=== PATIENT | male | born 1985 | race Caucasian/White ===

== ENCOUNTER 2017-12-11 10:28 | Emergency (ER) | payer SELFPAY ==
--- NOTE | 2017-12-11 22:48 | EDM.PDOC ---
ED HPI GENERAL MEDICAL PROBLEM - General Chief Complaint: General Stated Complaint: dental pain Time Seen by Provider: 12/11/17 11:51 Source of Information: Reports: Patient History Limitations: Reports: No Limitations - History of Present Illness INITIAL COMMENTS - FREE TEXT/NARRATIVE: Pt. presents to ER with complaints of acute on chronic R sided dental pain. Pt. states that he has been experiencing this for years. He states that he has severe tooth decay and is new to [place]. He just moved here from [place] and is wondering about getting set up for primary care, disability, and a local dentist. He states that he is not experiencing any fever or chills. No difficulty swallowing or managing his saliva. Location: Reports: Face Quality: Reports: Ache, Throbbing Severity: Moderate Tooth/Teeth Pain Score (Numeric/FACES): 8 - Related Data Allergies Allergy/AdvReac Type Severity Reaction Status Date / Time azithromycin Allergy Rash Verified 12/11/17 11:54 Past Medical History Psychiatric History: Reports: Other (See Below) Other Psychiatric History: pt states is currently not taking his psych medication of Buspar, Seroquel, Social & Family History - Tobacco Use Smoking Status *Q: Unknown Ever Smoked - Recreational Drug Use Drug Use in Last 12 Months: Yes Recreational Drug Type: Reports: Opium ED ROS GENERAL - Review of Systems Review Of Systems: See Below Constitutional: Reports: No Symptoms HEENT: Reports: Dental Pain Respiratory: Reports: No Symptoms Cardiovascular: Reports: No Symptoms Endocrine: Reports: No Symptoms GI/Abdominal: Reports: No Symptoms : Reports: No Symptoms Musculoskeletal: Reports: No Symptoms Skin: Reports: No Symptoms Neurological: Reports: No Symptoms Psychiatric: Reports: No Symptoms Hematologic/Lymphatic: Reports: No Symptoms Immunologic: Reports: No Symptoms ED EXAM, GENERAL - Physical Exam Exam: See Below Exam Limited By: No Limitations General Appearance: Alert, WD/WN, No Apparent Distress Eye Exam: Bilateral Eye: EOMI, Normal Fundi, Normal Inspection, PERRL Ears: Normal External Exam, Normal Canal, Hearing Grossly Normal, Normal TMs Ear Exam: Bilateral Ear: Auricle Normal, Canal Normal, TM normal Nose: Normal Inspection, Normal Mucosa, No Blood Throat/Mouth: No Airway Compromise, Other (all teeth are decayed. Most are decayed to the gumline.) Head: Atraumatic, Normocephalic, Facial Tenderness Neck: Normal Inspection, Supple, Non-Tender, Full Range of Motion Respiratory/Chest: No Respiratory Distress, Lungs Clear, Normal Breath Sounds, No Accessory Muscle Use, Chest Non-Tender Cardiovascular: Normal Peripheral Pulses, Regular Rate, Rhythm, No Edema, No Gallop, No JVD, No Murmur, No Rub GI/Abdominal: Normal Bowel Sounds, Soft, Non-Tender, No Organomegaly, No Distention, No Abnormal Bruit, No Mass (Male) Exam: Deferred Rectal (Males) Exam: Deferred Extremities: Normal Inspection, Normal Range of Motion, Non-Tender, Normal Capillary Refill, No Pedal Edema Neurological: Alert, Oriented, CN II-XII Intact, Normal Cognition, Normal Gait, Normal Reflexes, No Motor/Sensory Deficits Psychiatric: Normal Affect, Normal Mood Skin Exam: Warm, Dry, Intact, Normal Color, No Rash Course - Vital Signs Last Recorded V/S: Last Vital Signs Temp 36.2 C 12/11/17 11:51 Pulse 99 12/11/17 11:51 Resp 20 12/11/17 11:51 BP 108/75 12/11/17 11:51 Pulse Ox 98 12/11/17 11:51 Departure - Departure Time of Disposition: 12:00 Disposition: Home, Self-Care 01 Condition: Good Clinical Impression: Chronic dental infection - Discharge Information Instructions: Dental Abscess, [id number] Referrals: PCP,None [Primary Care Provider] - Forms: ED Department Discharge Additional Instructions: Augmentin 875mg twice daily for 10 days Ibuprofen 800mg every 8 hours Establish care at one of the clinics in [facility]; [phone] [facility]; [phone] Contact [facility] at [phone] regarding your teeth.
== END 2017-12-11 12:00 | disposition home or self-care (01) ==
LOC: VM.ED 10:28
DX: K04.7 Periapical abscess without sinus (principal); K02.9 Dental caries, unspecified; Z88.1 Allergy status to other antibiotic agents
CPT/HCPCS: 99282

== ENCOUNTER 2017-12-26 17:02 | Emergency (ER) | payer MEDICAID ==
[2017-12-26] MEDS ORDERED: Morphine 2 MG/ML Syringe IVPUSH ONE (18:21)
[2017-12-26] MEDS ORDERED: Sodium Chloride 0.9% 10 ML Syringe FLUSH PRN (18:21)
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
[2017-12-26] MEDS ORDERED: Lactated Ringers 1,000 ML IV SCH (18:30)
[2017-12-26 19:15] LABS: CHLORIDE,CL 105 mmol/L (98-107); SODIUM,NA 142 mmol/L (136-145)
== END 2017-12-26 19:44 | disposition home or self-care (01) ==
LOC: VM.ED 17:02
DX: R10.32 Left lower quadrant pain (principal); Z88.1 Allergy status to other antibiotic agents
CPT/HCPCS: 36415; 74176; 80053; 81001; 85025; 96365; 96375; 99284; J2270; J7120

== ENCOUNTER 2018-01-08 18:15 | Emergency (ER) | payer MEDICAID ==
[2018-01-08] MEDS ORDERED: Take Home: Acetaminophen/Codeine 300 MG/30 MG, 5 Tab Pack PO ONE (18:46)
--- NOTE | 2018-01-09 07:10 | EDM.PDOC ---
ED HPI GENERAL MEDICAL PROBLEM - General Chief Complaint: ENT Problem Time Seen by Provider: 01/08/18 18:15 Source of Information: Reports: Patient History Limitations: Reports: No Limitations - History of Present Illness INITIAL COMMENTS - FREE TEXT/NARRATIVE: Dental pain Duration: Getting Worse Location: Reports: Generalized Left Upper Tooth/Teeth Pain Score (Numeric/FACES): 7 - Related Data Allergies Allergy/AdvReac Type Severity Reaction Status Date / Time azithromycin Allergy Rash Verified 12/26/17 19:02 Home Meds: Home Meds . [No Known Home Meds] 12/26/17 [History] Past Medical History Respiratory History: Reports: Asthma Gastrointestinal History: Reports: Chronic Diarrhea, Other (See Below) Other Gastrointestinal History: Ulcerative colitis Musculoskeletal History: Reports: RA, Other (See Below) Other Musculoskeletal History: degenerative disc disease Psychiatric History: Reports: Other (See Below) Other Psychiatric History: pt states is currently not taking his psych medication of Buspar, Seroquel, Oncologic (Cancer) History: Reports: Other (See Below) Other Oncologic History: Intestine - Past Surgical History HEENT Surgical History: Reports: Adenoidectomy, Tonsillectomy GI Surgical History: Reports: Appendectomy Social & Family History - Tobacco Use Smoking Status *Q: Former Smoker Used Tobacco, but Quit: Yes Month/Year Tobacco Last Used: 0 ED ROS GENERAL - Review of Systems Review Of Systems: See Below Constitutional: Reports: No Symptoms HEENT: Reports: Dental Pain Respiratory: Reports: No Symptoms Cardiovascular: Reports: No Symptoms Endocrine: Reports: No Symptoms GI/Abdominal: Reports: No Symptoms Musculoskeletal: Reports: No Symptoms Skin: Reports: No Symptoms Neurological: Reports: No Symptoms ED EXAM, GENERAL - Physical Exam Exam: See Below Exam Limited By: No Limitations General Appearance: Alert, WD/WN, No Apparent Distress Throat/Mouth: Other (severe caries and decay to all teeth) Head: Atraumatic Neck: Normal Inspection, Supple, Non-Tender, Full Range of Motion Respiratory/Chest: No Respiratory Distress, Lungs Clear, Normal Breath Sounds, No Accessory Muscle Use, Chest Non-Tender Cardiovascular: Normal Peripheral Pulses, Regular Rate, Rhythm, No Edema, No Gallop, No JVD, No Murmur, No Rub Course - Vital Signs Last Recorded V/S: Last Vital Signs Temp 36.1 C 01/08/18 18:32 Pulse 88 01/08/18 18:32 Resp 16 01/08/18 18:32 BP 116/74 01/08/18 18:32 Pulse Ox 97 01/08/18 18:32 - Orders/Labs/Meds Meds: Medications Discontinued Medications Generic Name Dose Route Start Last Admin Trade Name Russel PRN Reason Stop Dose Admin Acetaminophen/Codeine Phosphate 1 packet 01/08/18 18:46 01/08/18 19:03 Take Home: Acetam/Codeine 300-30 Mg, 5 Pack PO 01/08/18 18:47 1 packet ONETIME ONE Administration Departure - Departure Time of Disposition: 19:05 Disposition: Home, Self-Care 01 Clinical Impression: Dental caries, Dental abscess - Discharge Information Instructions: Dental Abscess Referrals: PCP,None [Primary Care Provider] - Forms: ED Department Discharge Additional Instructions: Go to the clinic and establish care. You need to get you pain meds from them from now on. Follow-up with dentist.
== END 2018-01-08 19:05 | disposition home or self-care (01) ==
LOC: VM.ED 18:15
DX: K04.7 Periapical abscess without sinus (principal); K02.9 Dental caries, unspecified; Z88.1 Allergy status to other antibiotic agents; Z87.891 Personal history of nicotine dependence
CPT/HCPCS: 99282; A9270-GY

== ENCOUNTER 2018-03-05 19:55 | Emergency (ER) | payer MEDICAID ==
[2018-03-05] MEDS ORDERED: Sodium Chloride 0.9% 10 ML Syringe FLUSH PRN (20:09)
[2018-03-05] MEDS ORDERED: Sodium Chloride 0.9% 1,000 ML IV ONE (20:09)
[2018-03-05] MEDS ORDERED: HYDROmorphone 1 MG/ML Syringe IVPUSH ONE (20:11)
[2018-03-05] MEDS ORDERED: Ondansetron 4 MG/2 ML SDV IVPUSH ONE (20:11)
[2018-03-05] MEDS: Morphine 4 MG/ML Syringe IM ONE (20:47)
--- NOTE | 2018-03-05 21:19 | EDM.PDOC ---
ED HPI GENERAL MEDICAL PROBLEM - General Chief Complaint: Skin Complaint Stated Complaint: skin problem Time Seen by Provider: 03/05/18 19:55 Source of Information: Reports: Patient, Family, RN, RN Notes Reviewed History Limitations: Reports: No Limitations - History of Present Illness INITIAL COMMENTS - FREE TEXT/NARRATIVE: Patient presents to the ED at [facility] for a 3 weeks history of a non- healing skin abscess to the left lower anterior maloney. Patient states he was chasing his dog through a field and must have gotten something lodged under his skin. Patient states the area has been festering and getting worse. He states his left lower leg is painful and makes it difficult to walk. He has tried to "cut open and drain" the affected area at home. He states this has not worked and the area is getting worse. Left Lower Leg Pain Score (Numeric/FACES): 8 - Related Data Allergies Allergy/AdvReac Type Severity Reaction Status Date / Time No Known Allergies Allergy Verified 03/05/18 21:09 Home Meds: Home Meds Clindamycin HCl 1 cap PO Q8H 9 Days #27 capsule 03/05/18 [Rx] Past Medical History Respiratory History: Reports: Asthma Gastrointestinal History: Reports: Chronic Diarrhea, Hepatitis, Other (See Below ) Other Gastrointestinal History: Ulcerative colitis Musculoskeletal History: Reports: RA, Other (See Below) Other Musculoskeletal History: degenerative disc disease Psychiatric History: Reports: Other (See Below) Other Psychiatric History: pt states is currently not taking his psych medication of Buspar, Seroquel, Oncologic (Cancer) History: Reports: Other (See Below) Other Oncologic History: Intestine - Past Surgical History HEENT Surgical History: Reports: Adenoidectomy, Tonsillectomy GI Surgical History: Reports: Appendectomy Social & Family History - Tobacco Use Smoking Status *Q: Current Every Day Smoker Years of Tobacco use: 16 Packs/Tins Daily: 0.2 ED ROS GENERAL - Review of Systems Review Of Systems: See Below Constitutional: Reports: Chills. Denies: Fever, Weakness Respiratory: Denies: Shortness of Breath, Cough Cardiovascular: Denies: Chest Pain, Palpitations Musculoskeletal: Reports: Leg Pain (LLE) Skin: Reports: Wound (left lower anterior maloney) Neurological: Reports: No Symptoms ED EXAM, SKIN/RASH Exam: See Below Exam Limited By: No Limitations General Appearance: Alert, No Apparent Distress Respiratory/Chest: No Respiratory Distress, Lungs Clear, Normal Breath Sounds Cardiovascular: Normal Peripheral Pulses, Regular Rate, Rhythm Peripheral Pulses: 2+: Radial (L), Radial (R) Extremities: Leg Pain, Increased Warmth, Redness Neurological: Alert, Oriented Skin: Wound/Incision Location, Skin: Lower Extremity, Left Characteristics: Erythematous Associated features: Warmth, Tenderness, Swelling, Induration Course - Vital Signs Last Recorded V/S: Last Vital Signs Temp 36.9 C 03/05/18 20:12 Pulse 96 03/05/18 20:12 Resp 16 03/05/18 20:12 BP 142/83 H 03/05/18 20:12 Pulse Ox 100 03/05/18 20:12 - Orders/Labs/Meds Orders: Active Orders 24 hr Category Date Time Status C-REACTIVE PROTEIN [CHEM] Stat Lab 03/05/18 21:03 Received CMP [COMPREHENSIVE METABOLIC PN,CMP] [CHEM] Stat Lab 03/05/18 21:03 Received CULTURE BLOOD [BC] Stat Lab 03/05/18 20:08 Ordered CULTURE BLOOD [BC] Stat Lab 03/05/18 21:03 Results LACTIC ACID [CHEM] Stat Lab 03/05/18 21:03 Received Clindamycin Phosphate [Cleocin] Med 03/06/18 21:13 Once 900 mg IM ONETIME ONE Sodium Chloride 0.9% [Saline Flush] Med 03/05/18 20:09 Active 10 ml FLUSH ASDIRECTED PRN Blood Culture x2 Reflex Set [OM.PC] Stat Oth 03/05/18 20:08 Ordered Peripheral IV Insertion Adult [OM.PC] Routine Oth 03/05/18 20:09 Ordered Medication Orders Clindamycin Phosphate (Cleocin) 900 mg IM ONETIME ONE Stop: 03/06/18 21:14 Sodium Chloride (Saline Flush) 10 ml FLUSH ASDIRECTED PRN PRN Reason: Keep Vein Open Labs: Laboratory Tests 03/05/18 Range/Units 21:03 WBC 8.7 (4.0-10.0) x10^3/uL RBC 5.31 (4.5-6.0) x10^6/uL Hgb 16.1 (14.0-18.0) g/dL Hct 47.2 (40.0-52.0) % MCV 88.9 D (78.0-93.0) fL MCH 30.3 (26.0-32.0) pg MCHC 34.1 (32.0-36.0) g/dL RDW Coeff of Marine 13.2 (10.0-15.0) % Plt Count 259 (130-400) x10^3/uL Neut % (Auto) 58.4 (50.0-80.0) % Lymph % (Auto) 31.3 (25.0-50.0) % [place] % (Auto) 8.4 (2.0-11.0) % Eos % (Auto) 1.7 (0.0-4.0) % Baso % (Auto) 0.2 (0.2-1.2) % Meds: Medications Generic Name Dose Route Start Last Admin Trade Name Freq PRN Reason Stop Dose Admin Clindamycin Phosphate 900 mg 03/06/18 21:13 Cleocin IM 03/06/18 21:14 ONETIME ONE Sodium Chloride 10 ml 03/05/18 20:09 Saline Flush FLUSH ASDIRECTED PRN Keep Vein Open Discontinued Medications Generic Name Dose Route Start Last Admin Trade Name Freq PRN Reason Stop Dose Admin Hydromorphone HCl 1 mg 03/05/18 20:11 Dilaudid IVPUSH 03/05/18 20:12 ONETIME ONE Sodium Chloride 1,000 mls @ 999 mls/hr 03/05/18 20:09 Normal Saline IV 03/05/18 21:09 ONETIME ONE Morphine Sulfate 4 mg 03/05/18 20:28 03/05/18 20:47 Morphine IM 03/05/18 20:29 4 mg ONETIME ONE Administration Ondansetron HCl 4 mg 03/05/18 20:11 Zofran IVPUSH 03/05/18 20:12 ONETIME ONE Departure - Departure Time of Disposition: 21:21 Disposition: Home, Self-Care 01 Condition: Good Clinical Impression: Cellulitis and abscess of left leg - Discharge Information *PRESCRIPTION DRUG MONITORING PROGRAM REVIEWED*: Not Applicable *COPY OF PRESCRIPTION DRUG MONITORING REPORT IN PATIENT BRAIN: Not Applicable Prescriptions: Clindamycin HCl 1 cap PO Q8H 9 Days #27 capsule Instructions: Skin Abscess, Cellulitis, Adult, Wound Care, Adult, Clindamycin capsules Referrals: Edin Moreno NP [Primary Care Provider] - 03/09/18 (See me in the clininc on FridayMarch 09 for a recheck. Call [phone] to make this appointment.) Additional Instructions: 1. Stay well hydrated and rest 2. Take antibiotics for the full coarse, even if symptoms are better 3. Soak left leg 3-4 times a day in Epsom salt warm water bath 4. Keep area covered 5. Keep area clean and dry 6. Keep leg elevated to help with swelling 7. See me in the clinic on March 09 for a recheck to make sure everything is healing well 8. Take over the counter Advil/Aleve for pain - Problem List Review Problem List Initiated/Reviewed/Updated: Yes - My Orders Last 24 Hours: My Active Orders 03/05/18 20:08 CULTURE BLOOD [BC] Stat Blood Culture x2 Reflex Set [OM.PC] Stat 03/05/18 20:09 Sodium Chloride 0.9% [Saline Flush] 10 ml FLUSH ASDIRECTED PRN Peripheral IV Insertion Adult [OM.PC] Routine 03/05/18 21:03 C-REACTIVE PROTEIN [CHEM] Stat CMP [COMPREHENSIVE METABOLIC PN,CMP] [CHEM] Stat CULTURE BLOOD [BC] Stat LACTIC ACID [CHEM] Stat 03/06/18 21:13 Clindamycin Phosphate [Cleocin] 900 mg IM ONETIME ONE - Assessment/Plan Last 24 Hours: My Active Orders 03/05/18 20:08 CULTURE BLOOD [BC] Stat Blood Culture x2 Reflex Set [OM.PC] Stat 03/05/18 20:09 Sodium Chloride 0.9% [Saline Flush] 10 ml FLUSH ASDIRECTED PRN Peripheral IV Insertion Adult [OM.PC] Routine 03/05/18 21:03 C-REACTIVE PROTEIN [CHEM] Stat CMP [COMPREHENSIVE METABOLIC PN,CMP] [CHEM] Stat CULTURE BLOOD [BC] Stat LACTIC ACID [CHEM] Stat 03/06/18 21:13 Clindamycin Phosphate [Cleocin] 900 mg IM ONETIME ONE Assessment:: Left Lower extremity leg skin abscess Plan: Unable to start IV after several tries. Will give abx IM given normal WBC. Start PO tomorrow. Update tetanus today. Will discharge patient home with wound care instructions. Patient to see me in clinic on March 09 for a wound recheck.
[2018-03-05] MEDS: Clindamycin Phosphate 900 MG/6 ML SDV IM ONE (21:26)
[2018-03-05 21:42] LABS: CHLORIDE,CL 104 mmol/L (98-107); SODIUM,NA 139 mmol/L (136-145)
[2018-03-05 21:46] LABS: ANION GAP 11.5 mmol/L (10-20)
[2018-03-06] MEDS ORDERED: Clindamycin Phosphate 900 MG/6 ML SDV IM ONE (21:13)
== END 2018-03-05 21:37 | disposition home or self-care (01) ==
LOC: VM.ED 19:55
DX: L02.416 Cutaneous abscess of left lower limb (principal); L03.116 Cellulitis of left lower limb
CPT/HCPCS: 10060; 36415; 80053; 83605; 85025; 86140; 87040; 87070; 87077; 96372; 99283; J2270; S0077

== ENCOUNTER 2018-03-06 22:39 | Observation (INO) | payer MEDICAID ==
[2018-03-06] MEDS ORDERED: Sodium Chloride 0.9% 10 ML Syringe FLUSH PRN (22:56)
[2018-03-06] MEDS ORDERED: Sodium Chloride 0.9% 1,000 ML IV ONE (23:56)
[2018-03-07 00:34] LABS: CHLORIDE,CL 105 mmol/L (98-107); SODIUM,NA 139 mmol/L (136-145)
[2018-03-07 00:43] LABS: ANION GAP 9.9 mmol/L (10-20)
[2018-03-07] MEDS ORDERED: Piperacillin/Tazobactam 3.375 GM in Sodium Chloride 0.9% 100 ML IV SCH ×2 (00:45→09:00)
[2018-03-07] MEDS ORDERED: Ibuprofen 200 MG Tab PO PRN (00:46)
[2018-03-07] MEDS ORDERED: Acetaminophen/HYDROcodone 325-5 MG Tab PO PRN (00:46)
[2018-03-07] MEDS ORDERED: Piperacillin/Tazobactam 4.5 GM in Sodium Chloride 0.9% 100 ML IV ONE (01:00)
[2018-03-07] MEDS: Nicotine 14 MG/24 Hr Patch TRDERM SCH ×2 (01:35→08:09)
[2018-03-07] MEDS: Piperacillin/Tazobactam 4.5 GM in Sodium Chloride 0.9% 100 ML IV ONE ×2 (01:36→02:29)
--- NOTE | 2018-03-07 02:23 | EDM.PDOC ---
ED HPI GENERAL MEDICAL PROBLEM - General Chief Complaint: Wound Recheck Stated Complaint: Increased pain/redness to sore on left leg Time Seen by Provider: 03/06/18 22:45 Source of Information: Reports: Patient History Limitations: Reports: No Limitations - History of Present Illness INITIAL COMMENTS - FREE TEXT/NARRATIVE: Pt. complains of pain, swelling, and discharge from an area of cellulitis to his L medial ankle. Pt. was seen for the same last evening and was prescribed oral clindamycin. Pt. states that has been experiencing fever and chills today. He states that he does not recall injuring his ankle. He states that the area of more edematous and painful. No chest pain or shortness of breath. No weakness. Pt. has a history of hepatitis C and has a history of IV drug use. He admits that the last time was 1 month ago. Mother called the ER and stated that she found that she was missing some of her dilaudid tablets and syringes she uses for humira injections and found them in her son's room. Onset: Today Location: Reports: Lower Extremity, Left Quality: Reports: Throbbing Severity: Moderate Improves with: Reports: Medication (started clindamycin last evening) left lower leg Pain Score (Numeric/FACES): 5 - Related Data Allergies Allergy/AdvReac Type Severity Reaction Status Date / Time No Known Allergies Allergy Verified 03/06/18 23:05 Home Meds: Home Meds Clindamycin HCl 1 cap PO Q8H 9 Days #27 capsule 03/05/18 [Rx] Past Medical History Respiratory History: Reports: Asthma Gastrointestinal History: Reports: Chronic Diarrhea, Hepatitis, Other (See Below ) Other Gastrointestinal History: Ulcerative colitis Musculoskeletal History: Reports: RA, Other (See Below) Other Musculoskeletal History: degenerative disc disease Psychiatric History: Reports: Other (See Below) Other Psychiatric History: pt states is currently not taking his psych medication of Buspar, Seroquel, Oncologic (Cancer) History: Reports: Other (See Below) Other Oncologic History: Intestine - Past Surgical History HEENT Surgical History: Reports: Adenoidectomy, Tonsillectomy GI Surgical History: Reports: Appendectomy Social & Family History - Tobacco Use Smoking Status *Q: Current Every Day Smoker Years of Tobacco use: 17 Packs/Tins Daily: 0.5 Month/Year Tobacco Last Used: 02/2018 - Caffeine Use Caffeine Use: Reports: Soda - Recreational Drug Use Recreational Drug Use: Yes Drug Use in Last 12 Months: Yes Recreational Drug Type: Reports: Fentanyl Other Recreational Drug Type: History of Heroin, Fentanyl abuse. ED ROS GENERAL - Review of Systems Review Of Systems: See Below Constitutional: Reports: Fever, Chills HEENT: Reports: No Symptoms Respiratory: Reports: No Symptoms Cardiovascular: Reports: No Symptoms Endocrine: Reports: No Symptoms GI/Abdominal: Reports: No Symptoms : Reports: No Symptoms Musculoskeletal: Reports: Leg Pain Skin: Reports: Erythema, Lesions Neurological: Reports: No Symptoms Psychiatric: Reports: No Symptoms Hematologic/Lymphatic: Reports: No Symptoms Immunologic: Reports: No Symptoms ED EXAM, GENERAL - Physical Exam Exam: See Below Exam Limited By: No Limitations General Appearance: Alert, WD/WN, Mild Distress Eye Exam: Bilateral Eye: EOMI, PERRL Nose: Normal Inspection, Normal Mucosa, No Blood Throat/Mouth: Normal Inspection, Normal Lips, Normal Teeth, Normal Gums, Normal Oropharynx, Normal Voice, No Airway Compromise Head: Atraumatic, Normocephalic Neck: Normal Inspection, Supple, Non-Tender, Full Range of Motion Respiratory/Chest: No Respiratory Distress, Lungs Clear, Normal Breath Sounds, No Accessory Muscle Use, Chest Non-Tender Cardiovascular: Normal Peripheral Pulses, Regular Rate, Rhythm, No Edema, No Gallop, No JVD, No Murmur, No Rub Peripheral Pulses: 4+: Popliteal (L), Popliteal (R) GI/Abdominal: Normal Bowel Sounds, Soft, Non-Tender, No Organomegaly, No Distention, No Abnormal Bruit, No Mass (Male) Exam: Deferred Rectal (Males) Exam: Deferred Back Exam: Normal Inspection, Full Range of Motion, NT Extremities: Normal Range of Motion, Redness, Other (erythema and edema to L medial ankle) Psychiatric: Normal Affect, Normal Mood Skin Exam: Warm, Dry, Intact, Normal Color, No Rash Lymphatic: No Adenopathy Course - Vital Signs Last Recorded V/S: Last Vital Signs Temp 36.3 C 03/06/18 22:40 Pulse 91 03/06/18 22:40 Resp 16 03/06/18 22:40 BP 141/79 H 03/06/18 22:40 Pulse Ox - Orders/Labs/Meds Orders: Active Orders 24 hr Category Date Time Status Patient Status [ADT] Routine ADT 03/07/18 00:02 Active Sodium Chloride 0.9% [Normal Saline] 1,000 ml Med 03/06/18 23:56 Active IV .BOLUS Sodium Chloride 0.9% [Saline Flush] Med 03/06/18 22:56 Active 10 ml FLUSH ASDIRECTED PRN Peripheral IV Insertion Adult [OM.PC] Routine Oth 03/06/18 22:56 Ordered Medication Orders Hydrocodone Bitart/Acetaminophen ([place]coe 325-5 Mg) 1 tab PO Q4H PRN PRN Reason: Pain (severe 7-10) Last Admin: 03/07/18 01:32 Dose: 1 tab Enoxaparin Sodium (Lovenox) 40 mg SUBCUT DAILY SAMANTA Sodium Chloride (Normal Saline) 1,000 mls @ 200 mls/hr IV .BOLUS ONE Stop: 03/07/18 04:55 Last Admin: 03/07/18 00:15 Dose: 200 mls/hr Vancomycin HCl 1,500 mg/ (Sodium Chloride) 250 mls @ 167 mls/hr IV Q12H [facility] Piperacillin Sod/Tazobactam (Sod 3.375 gm/ Sodium Chloride) 100 mls @ 25 mls/ hr IV Q8H [facility] Ibuprofen (Motrin) 600 mg PO Q6H PRN PRN Reason: Pain/Fever Nicotine (Habitrol) 14 mg TRDERM DAILY [facility] Last Admin: 03/07/18 01:35 Dose: 14 mg Sodium Chloride (Saline Flush) 10 ml FLUSH ASDIRECTED PRN PRN Reason: Keep Vein Open Labs: Laboratory Tests 03/07/18 03/07/18 03/07/18 Range/Units 00:04 00:04 00:04 WBC 7.7 (4.0-10.0) x10^3/uL RBC 5.19 (4.5-6.0) x10^6/uL Hgb 15.7 (14.0-18.0) g/dL Hct 45.9 (40.0-52.0) % MCV 88.4 (78.0-93.0) fL MCH 30.3 (26.0-32.0) pg MCHC 34.2 (32.0-36.0) g/dL RDW Coeff of Marine 13.4 (10.0-15.0) % Plt Count 260 (130-400) x10^3/uL Neut % (Auto) 56.0 (50.0-80.0) % Lymph % (Auto) 33.5 (25.0-50.0) % Butts % (Auto) 8.3 (2.0-11.0) % Eos % (Auto) 1.7 (0.0-4.0) % Baso % (Auto) 0.5 (0.2-1.2) % Sodium 139 (136-145) mmol/L Potassium 3.9 (3.5-5.1) mmol/L Chloride 105 (98-107) mmol/L Carbon Dioxide 28 (21-32) mmol/L Anion Gap 9.9 L (10-20) mmol/L BUN 9 (7-18) mg/dL Creatinine 1.1 (0.70-1.30) mg/dL Est Cr Clr Drug Dosing 102.68 mL/min Estimated GFR (MDRD) > 60 Glucose 85 (74-106) mg/dL Lactic Acid 2.0 (0.4-2.0) mmol/L Calcium 9.5 (8.5-10.1) mg/dL Corrected Calcium 10.22 H (8.5-10.1) mg/dL Total Bilirubin 1.0 (0.2-1.0) mg/dL AST 62 H (15-37) U/L ALT 67 H (16-63) U/L Alkaline Phosphatase 66 (46-116) U/L C-Reactive Protein 4.4 H (<=0.9) mg/dL Total Protein 7.3 (6.4-8.2) g/dL Albumin 3.1 L (3.4-5.0) g/dL Globulin 4.2 Albumin/Globulin Ratio 0.74 Meds: Medications Generic Name Dose Route Start Last Admin Trade Name Freq PRN Reason Stop Dose Admin Hydrocodone Bitart/Acetaminophen 1 tab 03/07/18 00:46 03/07/18 01:32 Roscoe 325-5 Mg PO 1 tab Q4H PRN Administration Pain (severe 7-10) Enoxaparin Sodium 40 mg 03/07/18 08:00 Lovenox SUBCUT DAILY SAMANTA Sodium Chloride 1,000 mls @ 200 mls/hr 03/06/18 23:56 03/07/18 00:15 Normal Saline IV 03/07/18 04:55 200 mls/hr .BOLUS ONE Administration Vancomycin HCl 1,500 mg/ 250 mls @ 167 mls/hr 03/07/18 08:00 Sodium Chloride IV Q12H SAMANTA Piperacillin Sod/Tazobactam 100 mls @ 25 mls/hr 03/07/18 09:00 Sod 3.375 gm/ Sodium Chloride IV Q8H SAMANTA Ibuprofen 600 mg 03/07/18 00:46 Motrin PO Q6H PRN Pain/Fever Nicotine 14 mg 03/07/18 01:00 03/07/18 01:35 Habitrol TRDERM 14 mg DAILY SAMANTA Administration Sodium Chloride 10 ml 03/06/18 22:56 Saline Flush FLUSH ASDIRECTED PRN Keep Vein Open Discontinued Medications Generic Name Dose Route Start Last Admin Trade Name Freq PRN Reason Stop Dose Admin Vancomycin HCl 1,500 mg/ 250 mls @ 167 mls/hr 03/06/18 23:55 03/07/18 00:22 Sodium Chloride IV 03/07/18 01:24 167 mls/hr STAT ONE Administration Piperacillin Sod/Tazobactam 100 mls @ 200 mls/hr 03/07/18 01:23 Sod 4.5 gm/ Sodium Chloride IV 03/07/18 01:29 ONETIME ONE Departure - Departure Time of Disposition: 22:50 Disposition: Refer to Observation Clinical Impression: Cellulitis and abscess of left leg - Discharge Information - Problem List Review Problem List Initiated/Reviewed/Updated: Yes - My Orders Last 24 Hours: My Active Orders 03/06/18 22:56 Sodium Chloride 0.9% [Saline Flush] 10 ml FLUSH ASDIRECTED PRN Peripheral IV Insertion Adult [OM.PC] Routine 03/06/18 23:56 Sodium Chloride 0.9% [Normal Saline] 1,000 ml IV .BOLUS 03/07/18 00:02 Patient Status [ADT] Routine - Assessment/Plan Last 24 Hours: My Active Orders 03/06/18 22:56 Sodium Chloride 0.9% [Saline Flush] 10 ml FLUSH ASDIRECTED PRN Peripheral IV Insertion Adult [OM.PC] Routine 03/06/18 23:56 Sodium Chloride 0.9% [Normal Saline] 1,000 ml IV .BOLUS 03/07/18 00:02 Patient Status [ADT] Routine Plan: Admit observation. Code 1 Start vancomycin 1.5gm every 12 hours. Pharmacy to monitor trough levels and dose accordingly. Zosyn 4.5gm one time, then 3.375 gm every 8 hours . Roscoe 5/325mg every 6 hours in addition to ibuprofen.
[2018-03-07] MEDS: oxyCODONE 5 MG Tab PO PRN ×5 (05:37→23:54)
[2018-03-07] MEDS ORDERED: Enoxaparin 40 MG/0.4 ML Syringe SUBCUT SCH (08:00)
[2018-03-07] MEDS: Piperacillin/Tazobactam 3.375 GM in Sodium Chloride 0.9% 100 ML IV SCH ×2 (10:17→18:23)
[2018-03-07] MEDS ORDERED: Ketorolac 30 MG/ML SDV IVPUSH ONE (18:17)
[2018-03-08] MEDS ORDERED: Ertapenem 1 GM Vial IM ONE (03:01)
[2018-03-08] MEDS ORDERED: Sulfamethoxazole/Trimethoprim 800-160 MG Tab PO ONE (03:03)
[2018-03-08] MEDS: Piperacillin/Tazobactam 3.375 GM in Sodium Chloride 0.9% 100 ML IV SCH (03:13)
[2018-03-08] MEDS: oxyCODONE 5 MG Tab PO PRN (04:10)
--- NOTE | 2018-03-08 07:48 | PCM.DCSUM1 ---
Discharge Summary - Hospital Course Free Text/Narrative:: Pt. was admitted the morning of 03/07/18 with cellulitis and discharge from L ankle. He was seen by Edin Moreno perviously and started on oral clindamycin. The cellulitis was not improving, so the pt. presented to ER. He was also chilled and intermittently diaphoretic. He was started on IV vancomycin and zosyn. Pt. has a history IV drug use. Pt. denies recent IV drug use, but pt. mother found syringes that belonged to her in his room. She was also missing dilaudid tablets. The cellulitis has improved significantly on vanco and zosyn. His culture grew gram positive rods. Final ID and susceptibility is not yet available. Blood cultures are negative at this point. Great difficulty noted with starting IVs. His IV infiltrated in the morning of . Numerous attempts to start the IV were unsuccessful. Subsequently pt. was given Invanz 1 gm IM and started on oral bactrim DS. Diagnosis: Stroke: No - Discharge Data Discharge Date: 03/08/18 Discharge Disposition: Home, Self-Care 01 Condition: Stable - Discharge Diagnosis/Problem(s) (1) Cellulitis and abscess of left leg SNOMED Code(s): 099936640 ICD Code: L03.116 - CELLULITIS OF LEFT LOWER LIMB; L02.416 - CUTANEOUS ABSCESS OF LEFT LOWER LIMB Status: Acute Current Visit: Yes - Patient Summary/Data Consults: Consultations 03/07/18 00:40 Pharmacy Consult [Consult to Pharmacy] [CONS] Routine - Patient Instructions Diet: Regular Diet as Tolerated - Discharge Plan Prescriptions/Med Rec: Sulfamethoxazole/Trimethoprim [Bactrim Ds Tablet] 1 each PO BID 10 Days #20 tablet Home Medications: Home Meds Clindamycin HCl 1 cap PO Q8H 9 Days #27 capsule 03/05/18 [Rx] Sulfamethoxazole/Trimethoprim [Bactrim Ds Tablet] 1 each PO BID 10 Days #20 tablet 03/08/18 [Rx] Forms: ED Department Discharge Referrals: Edin Moreno NP [Primary Care Provider] - - General Info Date of Service: 03/08/18 Functional Status: Reports: Pain Controlled - Review of Systems General: Reports: No Symptoms HEENT: Reports: No Symptoms Pulmonary: Reports: No Symptoms Cardiovascular: Reports: No Symptoms Gastrointestinal: Reports: No Symptoms Genitourinary: Reports: No Symptoms Musculoskeletal: Reports: Other (see HPI. Area of cellulitis and discharge are greatly improved.) Skin: Reports: No Symptoms (see HPI) Neurological: Reports: No Symptoms Psychiatric: Reports: No Symptoms - Patient Data Vitals - Most Recent: Last Vital Signs Temp 36.4 C 03/08/18 06:00 Pulse 62 03/08/18 06:00 Resp 18 03/08/18 06:00 BP 116/66 03/08/18 06:00 Pulse Ox 97 03/08/18 06:00 Weight - Most Recent: 86.183 kg I&O - Last 24 hours: Intake & Output 03/07/18 03/08/18 03/08/18 22:59 06:59 14:59 Intake Total 790 789 Output Total 1725 Balance -935 789 Lab Results - Last 24 hrs: Laboratory Results - last 24 hr 03/07/18 Range/Units 07:19 Lactic Acid 0.7 (0.4-2.0) mmol/L Med Orders - Current: Current Medications Enoxaparin Sodium (Lovenox) 40 mg SUBCUT DAILY [facility] Last Admin: 03/07/18 08:09 Dose: 40 mg Vancomycin HCl 1,250 mg/ (Sodium Chloride) 500 mls @ 333.333 mls/hr IV Q8H [facility] Last Admin: 03/07/18 23:57 Dose: 333.333 mls/hr Piperacillin Sod/Tazobactam (Sod 3.375 gm/ Sodium Chloride) 100 mls @ 25 mls/ hr IV Q8H [facility] Last Admin: 03/08/18 03:13 Dose: Not Given Ibuprofen (Motrin) 600 mg PO Q6H PRN PRN Reason: Pain/Fever Nicotine (Habitrol) 14 mg TRDERM DAILY [facility] Last Admin: 03/07/18 08:09 Dose: 14 mg Oxycodone HCl (Oxycodone) 5 mg PO Q4H PRN PRN Reason: Pain (moderate 4-6) Last Admin: 03/08/18 04:10 Dose: 5 mg Sodium Chloride (Saline Flush) 10 ml FLUSH ASDIRECTED PRN PRN Reason: Keep Vein Open Last Admin: 03/07/18 16:28 Dose: 10 ml Vancomycin HCl (Pharmacy To Dose - Vancomycin) 1 dose .XX ASDIRECTED [facility] Discontinued Medications Hydrocodone Bitart/Acetaminophen ([place] 325-5 Mg) 1 tab PO Q4H PRN PRN Reason: Pain (severe 7-10) Last Admin: 03/07/18 01:32 Dose: 1 tab Ertapenem (Invanz) 1 gm IM ONETIME ONE Stop: 03/08/18 03:02 Last Admin: 03/08/18 04:04 Dose: 1 gm Vancomycin HCl 1,500 mg/ (Sodium Chloride) 250 mls @ 167 mls/hr IV STAT ONE Stop: 03/07/18 01:24 Last Admin: 03/07/18 00:22 Dose: 167 mls/hr Sodium Chloride (Normal Saline) 1,000 mls @ 200 mls/hr IV .BOLUS ONE Stop: 03/07/18 04:55 Last Admin: 03/07/18 00:15 Dose: 200 mls/hr Piperacillin Sod/Tazobactam (Sod 3.375 gm/ Sodium Chloride) 100 mls @ 25 mls/ hr IV Q8H [facility] Last Admin: 03/07/18 08:28 Dose: 25 mls/hr Piperacillin Sod/Tazobactam (Sod 4.5 gm/ Sodium Chloride) 100 mls @ 200 mls/hr IV ONETIME ONE Stop: 03/07/18 01:29 Last Admin: 03/07/18 02:29 Dose: 200 mls/hr Ketorolac Tromethamine (Toradol) 30 mg IVPUSH ONETIME ONE Stop: 03/07/18 18:18 Last Admin: 03/07/18 18:35 Dose: 30 mg Lidocaine HCl (Xylocaine-Mpf 1%) 3.1 ml INJECT ONETIME ONE Stop: 03/08/18 03:30 Last Admin: 03/08/18 04:09 Dose: 3.1 ml Trimethoprim/Sulfamethoxazole (Septra Ds) 1 tab PO ONETIME ONE Stop: 03/08/18 03:04 Last Admin: 03/08/18 04:03 Dose: 1 tab - Exam General: Reports: Alert, Oriented HEENT: Reports: Pupils Equal, Pupils Reactive, EOMI, Mucous Membr. Moist/[place] Neck: Reports: Supple Lungs: Reports: Clear to Auscultation, Normal Respiratory Effort Cardiovascular: Reports: Regular Rate, Regular Rhythm GI/Abdominal Exam: Normal Bowel Sounds, Soft, Non-Tender, No Organomegaly, No Distention, No Abnormal Bruit, No Mass, Pelvis Stable Back Exam: Reports: Normal Inspection, Full Range of Motion Extremities: Normal Range of Motion, Normal Capillary Refill, Redness (redness and discharge from L medial ankle) Skin: Reports: Warm, Dry, Intact Wound/Incisions: Reports: Healing Well, Drainage, Erythema Neurological: Reports: No New Focal Deficit Psy/Mental Status: Reports: Alert, Normal Affect, Normal Mood
== END 2018-03-08 08:05 | disposition home or self-care (01) ==
LOC: VM.ED 22:39 → VM.MS 03-07 00:02 → UNDOADMOB 03-07 00:05 → VM.MS 03-07 00:05 → UNDODISOB 03-08 08:05
PROVIDERS: ADMIT Physician Assistant; ATTEND Physician Assistant
DX: L03.116 Cellulitis of left lower limb (principal); L02.416 Cutaneous abscess of left lower limb; Z79.2 Long term (current) use of antibiotics; F17.210 Nicotine dependence, cigarettes, uncomplicated; J45.909 Unspecified asthma, uncomplicated; M06.9 Rheumatoid arthritis, unspecified; K51.90 Ulcerative colitis, unspecified, without complications
CPT/HCPCS: 36415; 80053; 83605; 85025; 86140; 96365; 96366; 96367; 96372; 96375; 99284; A9270; G0378; J1335; J1650; J1885; J2543; J3370; J7030; J7040; J7050; 96374

== ENCOUNTER 2019-05-08 17:36 | Emergency (ER) | payer MEDICAID ==
--- NOTE | 2019-05-08 18:01 | EDM.PDOC ---
ED HPI GENERAL MEDICAL PROBLEM - General Chief Complaint: Behavioral/Psych Time Seen by Provider: 05/08/19 17:40 Source of Information: Reports: Patient, Police History Limitations: Reports: No Limitations - History of Present Illness INITIAL COMMENTS - FREE TEXT/NARRATIVE: Pt. presents to ER via police dept. Pt. was having an argument with his mother and sister at his sister's apartment. Pt. was evicted from his trailer that he was sharing with his mother on 04/29 due to inability to pay rent. He has been staying with his sister since then. He is disabled due to back injury and asthma. He does not have a PCP and is not currently on any medications. Police was summoned because he was fighting with his family about washing the dishes. He made a statement to the effect that he was going to "jump out the window" to avoid fighting with his family. Police was summoned. Pt. denies suicidal or homicidal ideation. Sister wants him out of her house. Pt. was noted to be very animated and was speaking rapidly on scene. He states that he has been digging up "fossils and meteorites" around town. Denies any auditory or visual hallucinations. He feels that he is actually digging up the fossils and meteorites and doesn't feel as though he is hallucinating. Pt. states that he moved here from [place] a year ago. He is well-known to the ER, typically for dental pain or cellulitis. He has not been seen in ER for mental health issues, according to his med record. He states that he was diagnosed with bipolar in [place] but has not seen a psychiatrist or been on meds for 2 years. Previously he had been on seroquel. Pt. states that he tried methamphetamine about 3 weeks ago and "didn't like it" . He is, however, picking at his skin and states that he hasn't slept or eaten in 2 days. He is resistive to blood and alcohol testing. He states that he has been hanging out, digging for fossils in an area of town well known for drug use. Denies any other drug or alcohol use. He states that he was perviously an IV drug user when he was in [place]. He states that he quit after an overdose several years ago. Onset: Today - Related Data Allergies Allergy/AdvReac Type Severity Reaction Status Date / Time bee venom protein (honey bee) Allergy Anaphylactic Verified 05/08/19 17:52 Shock Home Meds: Home Meds Albuterol Sulfate [Proventil Hfa] 1 puff INH ASDIRECTED PRN 06/13/18 [History] Past Medical History Respiratory History: Reports: Asthma Gastrointestinal History: Reports: Chronic Diarrhea, Hepatitis, Other (See Below ) Other Gastrointestinal History: Ulcerative colitis Musculoskeletal History: Reports: RA, Other (See Below) Other Musculoskeletal History: degenerative disc disease Neurological History: Reports: Neuropathy, Peripheral Psychiatric History: Reports: Other (See Below) Other Psychiatric History: pt states is currently not taking his psych medication of Buspar, Seroquel, Oncologic (Cancer) History: Reports: Other (See Below) Other Oncologic History: Intestine - Past Surgical History HEENT Surgical History: Reports: Adenoidectomy, Tonsillectomy GI Surgical History: Reports: Appendectomy Social & Family History - Family History Cardiac: Reports: Other (See Below) Other Cardiac Family History: Mother has heart disease. Musculoskeletal: Reports: Osteoarthritis Neurological: Reports: Neuropathy, Peripheral, Parkinson's Endocrine/Metabolic: Reports: Diabetes, type II - Caffeine Use Caffeine Use: Reports: Soda ED ROS GENERAL - Review of Systems Review Of Systems: See Below Constitutional: Reports: No Symptoms HEENT: Reports: No Symptoms Respiratory: Reports: No Symptoms Cardiovascular: Reports: No Symptoms Endocrine: Reports: No Symptoms GI/Abdominal: Reports: No Symptoms : Reports: No Symptoms Musculoskeletal: Reports: No Symptoms Skin: Reports: No Symptoms Neurological: Reports: No Symptoms Psychiatric: Reports: Agitation, Hallucinations Hematologic/Lymphatic: Reports: No Symptoms ED EXAM, GENERAL - Physical Exam Exam: See Below Exam Limited By: No Limitations General Appearance: Alert, WD/WN, No Apparent Distress Eye Exam: Bilateral Eye: EOMI, Normal Fundi, Normal Inspection, PERRL Throat/Mouth: Normal Inspection, Normal Lips, Normal Teeth, Normal Oropharynx, Normal Voice, No Airway Compromise Head: Atraumatic, Normocephalic Neck: Normal Inspection, Supple, Non-Tender Respiratory/Chest: No Respiratory Distress, Lungs Clear, Normal Breath Sounds, No Accessory Muscle Use, Chest Non-Tender Cardiovascular: Normal Peripheral Pulses, Regular Rate, Rhythm, No Edema, No Gallop, No JVD Peripheral Pulses: 4+: Radial (R) GI/Abdominal: Normal Bowel Sounds, Soft, Non-Tender, No Organomegaly, No Distention, No Mass (Male) Exam: Deferred Rectal (Males) Exam: Deferred Back Exam: Normal Inspection, Full Range of Motion Extremities: Normal Inspection, Normal Range of Motion, Non-Tender, No Pedal Edema, Normal Capillary Refill Neurological: Alert, Oriented, CN II-XII Intact, Normal Cognition, Normal Gait, Normal Reflexes, No Motor/Sensory Deficits Psychiatric: Anxious, Other (very rapid speech, mildly anxious. ) Skin Exam: Warm, Dry, Other (extremities are covered with scabs consistent with picking of the skin. No obvious rash or urticaria. ) Course - Vital Signs Last Recorded V/S: Last Vital Signs Temp 36.2 C 05/08/19 17:36 Pulse 99 05/08/19 17:36 Resp 20 05/08/19 17:36 BP 126/78 05/08/19 17:36 Pulse Ox 98 05/08/19 17:36 - Orders/Labs/Meds Labs: Laboratory Tests 05/08/19 05/08/19 05/08/19 Range/Units 18:06 18:06 18:35 WBC 7.9 (4.0-10.0) x10^3/uL RBC 5.06 (4.5-6.0) x10^6/uL Hgb 15.6 (14.0-18.0) g/dL Hct 45.4 (40.0-52.0) % MCV 89.7 (78.0-93.0) fL MCH 30.8 (26.0-32.0) pg MCHC 34.4 (32.0-36.0) g/dL RDW Coeff of Marine 13.6 (10.0-15.0) % Plt Count 211 (130-400) x10^3/uL Neut % (Auto) 50.1 (50.0-80.0) % Lymph % (Auto) 40.8 (25.0-50.0) % [place] % (Auto) 7.6 (2.0-11.0) % Eos % (Auto) 1.1 (0.0-4.0) % Baso % (Auto) 0.4 (0.2-1.2) % Sodium 142 (136-145) mmol/L Potassium 4.2 (3.5-5.1) mmol/L Chloride 105 (98-107) mmol/L Carbon Dioxide 25 (21-32) mmol/L Anion Gap 16.2 (10-20) mmol/L BUN 24 H (7-18) mg/dL Creatinine 1.2 (0.70-1.30) mg/dL Est Cr Clr Drug Dosing 93.25 mL/min Estimated GFR (MDRD) > 60 Glucose 95 (74-106) mg/dL Calcium 9.3 (8.5-10.1) mg/dL Corrected Calcium 9.54 (8.5-10.1) mg/dL Phosphorus 4.6 (2.6-4.7) mg/dL Magnesium 2.1 (1.8-2.4) mg/dL Total Bilirubin 1.5 H (0.2-1.0) mg/dL AST 86 H (15-37) U/L ALT 156 H (16-63) U/L Alkaline Phosphatase 73 (46-116) U/L Total Protein 7.3 (6.4-8.2) g/dL Albumin 3.7 (3.4-5.0) g/dL Globulin 3.6 Albumin/Globulin Ratio 1.03 TSH, Ultra Sensitive 2.013 (0.358-3.74) uIU/mL Urine Color Yellow (YELLOW) Urine Appearance Clear (CLEAR) Urine pH 6.5 (5.0-8.0) Ur Specific [place]auf[place] 1.020 Urine Protein Trace H (NEGATIVE) mg/dL Urine Glucose (UA) Negative (NEGATIVE) mg/dL Urine Ketones Negative (NEGATIVE) mg/dL Urine Occult Blood Negative (NEGATIVE) Urine Nitrite Negative (NEGATIVE) Urine Bilirubin Negative (NEGATIVE) Urine Urobilinogen 0.2 (0.2) EU/dL Ur Leukocyte Esterase Negative (NEGATIVE) Urine RBC Not seen (NOT SEEN) /HPF Urine WBC 0-5 (NOT SEEN) /HPF Ur Squamous Epith Cells Rare (NEGATIVE) /HPF Urine Bacteria Not seen (NEGATIVE) /HPF Urine Mucus Not seen (NEGATIVE) /LPF Urine Opiates Screen (NEAGTIVE) Ur Buprenorphine Scrn (NEGATIVE) Ur Oxycodone Screen (NEGATIVE) Ur EDDP (Meth Metab) (NEGATIVE) Urine Methadone Screen (NEGATIVE) Acetaminophen 0 L (10-30) ug/ml Ur Barbiturates Screen (NEGATIVE) Ur Tricyclics Screen (NEGATIVE) Ur Phencyclidine Scrn (NEGATIVE) Ur Amphetamine Screen (NEGATIVE) U Methamphetamines Scrn (NEGATIVE) Urine MDMA Screen (NEGATIVE) U Benzodiazepines Scrn (NEGATIVE) U Cocaine Metab Screen (NEGATIVE) U Marijuana (THC) Screen (NEGATIVE) Ethyl Alcohol < 3 (0-3) mg/dL 05/08/19 Range/Units 18:35 WBC (4.0-10.0) x10^3/uL RBC (4.5-6.0) x10^6/uL Hgb (14.0-18.0) g/dL Hct (40.0-52.0) % MCV (78.0-93.0) fL MCH (26.0-32.0) pg MCHC (32.0-36.0) g/dL RDW Coeff of Marine (10.0-15.0) % Plt Count (130-400) x10^3/uL Neut % (Auto) (50.0-80.0) % Lymph % (Auto) (25.0-50.0) % [place] % (Auto) (2.0-11.0) % Eos % (Auto) (0.0-4.0) % Baso % (Auto) (0.2-1.2) % Sodium (136-145) mmol/L Potassium (3.5-5.1) mmol/L Chloride (98-107) mmol/L Carbon Dioxide (21-32) mmol/L Anion Gap (10-20) mmol/L BUN (7-18) mg/dL Creatinine (0.70-1.30) mg/dL Est Cr Clr Drug Dosing mL/min Estimated GFR (MDRD) Glucose (74-106) mg/dL Calcium (8.5-10.1) mg/dL Corrected Calcium (8.5-10.1) mg/dL Phosphorus (2.6-4.7) mg/dL Magnesium (1.8-2.4) mg/dL Total Bilirubin (0.2-1.0) mg/dL AST (15-37) U/L ALT (16-63) U/L Alkaline Phosphatase (46-116) U/L Total Protein (6.4-8.2) g/dL Albumin (3.4-5.0) g/dL Globulin Albumin/Globulin Ratio TSH, Ultra Sensitive (0.358-3.74) uIU/mL Urine Color (YELLOW) Urine Appearance (CLEAR) Urine pH (5.0-8.0) Ur Specific [place] Urine Protein (NEGATIVE) mg/dL Urine Glucose (UA) (NEGATIVE) mg/dL Urine Ketones (NEGATIVE) mg/dL Urine Occult Blood (NEGATIVE) Urine Nitrite (NEGATIVE) Urine Bilirubin (NEGATIVE) Urine Urobilinogen (0.2) EU/dL Ur Leukocyte Esterase (NEGATIVE) Urine RBC (NOT SEEN) /HPF Urine WBC (NOT SEEN) /HPF Ur Squamous Epith Cells (NEGATIVE) /HPF Urine Bacteria (NEGATIVE) /HPF Urine Mucus (NEGATIVE) /LPF Urine Opiates Screen Negative (NEAGTIVE) Ur Buprenorphine Scrn Negative (NEGATIVE) Ur Oxycodone Screen Negative (NEGATIVE) Ur EDDP (Meth Metab) Negative (NEGATIVE) Urine Methadone Screen Negative (NEGATIVE) Acetaminophen (10-30) ug/ml Ur Barbiturates Screen Negative (NEGATIVE) Ur Tricyclics Screen Negative (NEGATIVE) Ur Phencyclidine Scrn Negative (NEGATIVE) Ur Amphetamine Screen Positive H (NEGATIVE) U Methamphetamines Scrn Positive H (NEGATIVE) Urine MDMA Screen Negative (NEGATIVE) U Benzodiazepines Scrn Negative (NEGATIVE) U Cocaine Metab Screen Negative (NEGATIVE) U Marijuana (THC) Screen Positive H (NEGATIVE) Ethyl Alcohol (0-3) mg/dL Departure - Departure Time of Disposition: 19:25 Disposition: Home, Self-Care 01 Clinical Impression: Methamphetamine abuse - Discharge Information Instructions: Stimulant Use Disorder-Methamphetamines Referrals: PCP,None [Primary Care Provider] - Forms: ED Department Discharge Additional Instructions: Do not use methamphetamine. Establish care at one of the clinics here in [facility]. Return to ER if you develop feelings of wanting to harm yourself or others. - Assessment/Plan Plan: Pt. unwilling to go to [facility]. He is not suicidal or homicidal and wishes to be discharged. This was done, as he is not an overt risk to himself of others. Advised to follow-up in clinic to establish care. Do not use methamphetamine.
[2019-05-08 18:41] LABS: CHLORIDE,CL 105 mmol/L (98-107); SODIUM,NA 142 mmol/L (136-145)
[2019-05-08 18:42] LABS: ANION GAP 16.2 mmol/L (10-20)
[2019-05-08 18:43] LABS: BARBITURATE SCREEN,URINE NEGATIVE (NEGATIVE); BENZODIAZEPINES SCREEN,URINE NEGATIVE (NEGATIVE); EDDP,URINE SCREEN NEGATIVE (NEGATIVE); METHAMPHETAMINE SCREEN, URINE POSITIVE (NEGATIVE); THC SCREEN,URINE 50 NG/ML POSITIVE (NEGATIVE)
[2019-05-08 18:44] LABS: TCA SCREEN,URINE NEGATIVE (NEGATIVE)
[2019-05-08 18:57] LABS: ACETAMINOPHEN 0 ug/ml (10-30)
== END 2019-05-08 19:25 | disposition home or self-care (01) ==
LOC: VM.ED 17:36
DX: F15.10 Other stimulant abuse, uncomplicated (principal); M06.9 Rheumatoid arthritis, unspecified; Z91.030 Bee allergy status; Z90.49 Acquired absence of other specified parts of digestive tract; Z98.890 Other specified postprocedural states
CPT/HCPCS: 36415; 80053; 80305-QW; 81001; 83735; 84100; 84443; 85025; 99285; G0480

== ENCOUNTER 2020-11-11 21:08 | Emergency (ER) | payer MEDICAID ==
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
== END 2020-11-11 22:46 | disposition home or self-care (01) ==
LOC: VM.ED 21:08
DX: K02.9 Dental caries, unspecified (principal); R11.2 Nausea with vomiting, unspecified; R06.02 Shortness of breath; R07.89 Other chest pain; R51.9 Headache, unspecified; J45.909 Unspecified asthma, uncomplicated; Z91.030 Bee allergy status; Z20.822 Contact with and (suspected) exposure to COVID-19
CPT/HCPCS: 99283; U0002

== ENCOUNTER 2020-11-18 13:18 | Emergency (ER) | payer MEDICAID ==
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
[2020-11-18 14:14] LABS: PTT,PARTIAL THROMBOPLSTIN TIME 25.9 SEC (25.6-32.8)
[2020-11-18 14:17] LABS: ANION GAP 9.2 mmol/L (5-15); CHLORIDE,CL 107 mmol/L (98-107); SODIUM,NA 141 mmol/L (136-145)
--- NOTE | 2020-11-18 14:32 | CT ---
[id number] CT/CT Head WO IV EXAM: NONCONTRAST HEAD CT INDICATION: FALL, STRUCK HEAD, POSITIVE LOSS OF CONSCIOUSNESS. COMPARISON: None. DISCUSSION: Anterior scalp/central forehead soft tissue swelling. The ventricles and sulci are normal in size and configuration. The bradley and white matter are normal in attenuation. No mass effect or midline shift. No acute hemorrhage or extra-axial fluid collection. No acute territorial infarct is identified. A limited look at the orbits and paranasal sinuses is unremarkable. Multiple periapical lucencies are noted involving the partially imaged teeth of the maxilla. IMPRESSION: 1. No evidence of acute intracranial trauma. Karri Amaya MD 11/18/20 7317 Thank you for allowing us to participate in the care of your patient.
--- NOTE | 2020-11-18 14:36 | CT ---
[id number] CT/CT Cervical Spine WO IV EXAM: NONCONTRAST CERVICAL SPINE CT INDICATION: FELL, POSITIVE LOSS OF CONSCIOUSNESS. COMPARISON: None. DISCUSSION: The vertebral bodies are normal in height and alignment. No fracture or suspicious osseous lesion is identified. Mild to moderate disc degeneration C3-C4 and moderate disc degeneration and C6-C7. Heterogeneous thyroid attenuation with scattered nodularity including a 20 mm left thyroid nodule. Ultrasound could provide further evaluation. IMPRESSION: 1. No evidence of acute cervical spine trauma. Karri Amaya MD 11/18/20 1965 Thank you for allowing us to participate in the care of your patient.
[2020-11-18] MEDS ORDERED: Ibuprofen 200 MG Tab PO ONE (14:48)
== END 2020-11-18 14:55 | disposition home or self-care (01) ==
LOC: VM.ED 13:18
DX: S09.90XA Unspecified injury of head, initial encounter (principal); R55 Syncope and collapse; S01.81XA Laceration without foreign body of other part of head, initial encounter; J45.909 Unspecified asthma, uncomplicated; Z91.030 Bee allergy status; W18.30XA Fall on same level, unspecified, initial encounter
CPT/HCPCS: 12013; 36415; 70450; 72125; 80053; 84484; 85025; 85610; 85730; 93005; 93010; 99284; 99285-25; A9270-GY

== ENCOUNTER 2020-11-23 20:35 | Emergency (ER) | payer MEDICAID ==
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
[2020-11-23 21:52] LABS: ANION GAP 16.1 mmol/L (5-15)
[2020-11-23 22:23] LABS: BARBITURATE SCREEN,URINE NEGATIVE (NEGATIVE); BENZODIAZEPINES SCREEN,URINE NEGATIVE (NEGATIVE); EDDP,URINE SCREEN NEGATIVE (NEGATIVE); METHAMPHETAMINE SCREEN, URINE POSITIVE (NEGATIVE); TCA SCREEN,URINE NEGATIVE (NEGATIVE); THC SCREEN,URINE 50 NG/ML POSITIVE (NEGATIVE)
[2020-11-23] MEDS: Sodium Chloride 0.9% 1,000 ML IV SCH (23:36)
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
== END 2020-11-23 23:51 | disposition short-term general hospital (02) ==
LOC: VM.ED 20:35
DX: T79.7XXA Traumatic subcutaneous emphysema, initial encounter (principal); J45.909 Unspecified asthma, uncomplicated; G62.9 Polyneuropathy, unspecified; Z91.030 Bee allergy status; Y04.0XXA Assault by unarmed brawl or fight, initial encounter
CPT/HCPCS: 36415; 70450; 71046; 72125; 72190; 80053; 80305-QW; 81001; 85025; 86140; 99285-25; J7030